=== PATIENT | female | born 1955 | race Caucasian/White ===

== ENCOUNTER → 2017-03-04 | Outpatient (CLI) | payer OTHER ==
[~2017-03-04] MED LIST: ATV/1 SL; ATV2 PO; HYDC25 PO; OXYC-57 PO; SIMV10TA2 PO; WARF5TAB90 PO
== END | disposition home or self-care (01) ==
LOC: C.CPL 11:08
PROVIDERS: ATTEND Orthopaedic Surgery
DX: M25.569 Pain in unspecified knee (principal); I49.3 Ventricular premature depolarization; R94.31 Abnormal electrocardiogram [ECG] [EKG]